=== PATIENT | female | born 1960 | race Caucasian/White ===

== ENCOUNTER 2020-07-08 16:39 | Emergency (ER) | payer SELFPAY ==
[2020-07-08] MEDS ORDERED: Sodium Chloride 0.9% 10 ML Syringe FLUSH PRN (17:38)
--- NOTE | 2020-07-08 18:13 | EDM.PDOC ---
ED HPI GENERAL MEDICAL PROBLEM - General Chief Complaint: Abdominal Pain Stated Complaint: ABD PAIN Time Seen by Provider: 07/08/20 18:00 Source of Information: Reports: Patient History Limitations: Reports: No Limitations - History of Present Illness INITIAL COMMENTS - FREE TEXT/NARRATIVE: patient presented to the ER with a c/o RLQ pain, started earlier today around noon and has been getting worse since then. Associated with nausea and loss of appetite. Pain is 8 out of 10. Sharp and spasm in nature. Worse with movement and improves with rest. No changes in BMs. h/o C section in the past. no PMH, not on any meds. 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 Genitourinary History: Reports: Other (See Below) Other Genitourinary History: kidney inection 5 years ago 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: Musculoskeletal History: Reports: Arthritis - Past Surgical History GI Surgical History: Reports: Cholecystectomy Social & Family History - Family History Family Medical History: Unobtainable - Tobacco Use Tobacco Use Status *Q: Former Tobacco User Used Tobacco, but Quit: Yes Month/Year Tobacco Last Used: 2000 Second Hand Smoke Exposure: No - Caffeine Use Caffeine Use: Reports: Coffee - Recreational Drug Use Recreational Drug Use: No ED ROS GENERAL - Review of Systems Review Of Systems: See Below Constitutional: Reports: No Symptoms HEENT: Reports: No Symptoms Respiratory: Reports: No Symptoms Cardiovascular: Reports: No Symptoms GI/Abdominal: Reports: Abdominal Pain Musculoskeletal: Reports: No Symptoms Skin: Reports: No Symptoms Neurological: Reports: No Symptoms ED EXAM, GI/ABD - Physical Exam Exam: See Below Exam Limited By: No Limitations General Appearance: Alert, Mild Distress Head: Atraumatic Respiratory/Chest: No Respiratory Distress, Lungs Clear Cardiovascular: Normal Peripheral Pulses, Regular Rate, Rhythm GI/Abdominal Exam: Distended, Rebound, Tender (RLQ) Extremities: Normal Inspection Neurological: Alert, Oriented, No Motor/Sensory Deficits Psychiatric: Normal Affect Course - Vital Signs Last Recorded V/S: Last Vital Signs Temp 36.1 C 07/08/20 18:03 Pulse 107 H 07/08/20 19:10 Resp 16 07/08/20 18:50 BP 149/78 H 07/08/20 19:10 Pulse Ox 96 07/08/20 18:50 - Orders/Labs/Meds Orders: Active Orders 24 hr Category Date Time Status Abdomen Pelvis w Cont [CT] Stat Exams 07/08/20 18:19 Taken Ciprofloxacin [Ciprofloxacin HCl] Med 07/08/20 19:13 Once 500 mg PO ONETIME ONE Iopamidol [Isovue-300 (61%)] Med 07/08/20 18:45 Active 100 ml IV . DIRECTED Sodium Chloride 0.9% [Normal Saline] 1,000 ml Med 07/08/20 18:15 Active IV ASDIRECTED Sodium Chloride 0.9% [Saline Flush] Med 07/08/20 17:38 Active 10 ml FLUSH ASDIRECTED PRN Tamsulosin [Flomax] Med 07/08/20 19:14 Once 0.4 mg PO ONETIME ONE Saline Lock Insert [OM.PC] Routine Oth 07/08/20 17:38 Ordered Medication Orders Ciprofloxacin (Ciprofloxacin Hcl) 500 mg PO ONETIME ONE Stop: 07/08/20 19:14 Sodium Chloride (Normal Saline) 1,000 mls @ 333 mls/hr IV ASDIRECTED [facility] Last Admin: 07/08/20 18:17 Dose: 333 mls/hr Documented by: ELBA Iopamidol (Isovue-300 (61%)) 100 ml IV . DIRECTED [facility] Last Admin: 07/08/20 18:37 Dose: 100 ml Documented by: JUVENTINO Sodium Chloride (Saline Flush) 10 ml FLUSH ASDIRECTED PRN PRN Reason: Keep Vein Open Labs: Laboratory Tests 07/08/20 07/08/20 07/08/20 Range/Units 17:30 17:56 17:56 WBC 7.5 (4.0-11.0) K/uL RBC 5.06 (3.80-5.80) M/uL Hgb 14.6 (11.5-16.5) g/dL Hct 43.8 (37.0-47.0) % MCV 87 (76-96) fL MCH 28.9 (27.0-32.0) pg MCHC 33.3 (31.0-35.0) g/dL RDW 13.9 (11.0-16.0) % Plt Count 148 L (150-500) K/uL MPV 8.7 (6.0-10.0) fL Neut % (Auto) 89.9 H (45.0-70.0) % Lymph % (Auto) 8.9 L (20.0-40.0) % [place] % (Auto) 0.4 L (3.0-10.0) % Eos % (Auto) 0.5 L (1.0-5.0) % Baso % (Auto) 0.3 (0.0-0.5) % Neut # (Auto) 6.73 (2.00-7.50) K/uL Lymph # (Auto) 0.67 L (1.50-4.00) K/uL [place] # (Auto) 0.03 L (0.20-0.80) K/uL Eos # (Auto) 0.04 (0.04-0.40) K/uL Baso # (Auto) 0.02 (0.02-0.10) K/uL Sodium 143 (136-145) mmol/L Potassium 3.8 (3.5-5.1) mmol/L Chloride 105 (98-107) mmol/L Carbon Dioxide 26.7 (21.0-32.0) mmol/L Anion Gap 15.1 H (5.0-15.0) mmol/L BUN 23 (8-26) mg/dL Creatinine 1.02 (0.55-1.02) mg/dL Est Cr Clr Drug Dosing 58.46 mL/min Estimated GFR (MDRD) 56 L (>60) MLS/MIN BUN/Creatinine Ratio 22.5 (6-25) Glucose 94 (74-100) mg/dL Calcium 8.7 (8.5-10.1) mg/dL Total Bilirubin 0.3 (0.0-1.0) mg/dL AST 20 (15-37) U/L ALT 31 (12-78) U/L Alkaline Phosphatase 93 (46-116) U/L Total Protein 7.8 (6.4-8.2) g/dL Albumin 4.1 (3.4-5.0) g/dL Globulin 3.7 (2.2-4.2) g/dL Albumin/Globulin Ratio 1.1 (0.8-2.0) Lipase 51 L (73-393) U/L Urine Color [place] Urine Appearance Slightly cloudy (CLEAR) Urine Protein Unable to report (NEGATIVE) mg/dL Urine Glucose (UA) Unable to report (NEGATIVE) mg/dL Urine Ketones Unable to report (NEGATIVE) mg/dL Urine Occult Blood Unable to report (NEGATIVE) Urine Nitrite Unable to report (NEGATIVE) Urine Bilirubin Unable to report (NEGATIVE) Urine Urobilinogen Unable to report (0.2-1.0) E.U./dL Ur Leukocyte Esterase Unable to report (NEGATIVE) Urine RBC 20-30 H /HPF Urine WBC 10-20 H /HPF Urine WBC Clumps Few /HPF Ur Squamous Epith Cells Few /HPF Urine Bacteria Many H /HPF Meds: Medications Generic Name Dose Route Start Last Admin Trade Name Freq PRN Reason Stop Dose Admin Ciprofloxacin 500 mg 07/08/20 19:13 Ciprofloxacin Hcl PO 07/08/20 19:14 ONETIME ONE Sodium Chloride 1,000 mls @ 333 mls/hr 07/08/20 18:15 07/08/20 18:17 Normal Saline IV 333 mls/hr ASDIRECTED KIRAN Administration Iopamidol 100 ml 07/08/20 18:45 07/08/20 18:37 Isovue-300 (61%) IV 100 ml . DIRECTED KIRAN Administration Sodium Chloride 10 ml 07/08/20 17:38 Saline Flush FLUSH ASDIRECTED PRN Keep Vein Open Discontinued Medications Generic Name Dose Route Start Last Admin Trade Name Freq PRN Reason Stop Dose Admin Ketorolac Tromethamine 15 mg 07/08/20 18:57 07/08/20 19:02 Toradol IVPUSH 07/08/20 18:58 15 mg ONETIME ONE Administration Morphine Sulfate 4 mg 07/08/20 18:14 07/08/20 18:24 Morphine IVPUSH 07/08/20 18:15 4 mg ONETIME ONE Administration Ondansetron HCl 4 mg 07/08/20 18:14 07/08/20 18:21 Zofran IVPUSH 07/08/20 18:15 4 mg ONETIME ONE Administration Sodium Chloride 50 ml 07/08/20 18:33 07/08/20 18:37 Normal Saline FLUSH 07/08/20 18:34 50 ml ONETIME ONE Administration - Re-Assessments/Exams Free Text/Narrative Re-Assessment/Exam: IV line was started. pain was controlled with IV morphine and Toradol. pain down to 1. Nausea was controlled with IV zofran. labs were ordered - showed now leukocytosis, but ++ RBC/WBC in urine. due to the location of the pain - CT abd/pelv was done to rule out a possible acute appy. this was negative for inflammatory changes of the appendix, but showed right distal ureteric stone 2-3mm with mild/mod uretero/hydronephrosis. Patient reports feeling much better Departure - Departure Time of Disposition: 19:18 Disposition: Home, Self-Care 01 Condition: Good Clinical Impression: Ureteric stone UTI (urinary tract infection) Qualifiers: Urinary tract infection type: urethritis Qualified Code(s): N34.2 - Other urethritis - Discharge Information *PRESCRIPTION DRUG MONITORING PROGRAM REVIEWED*: Not Applicable *COPY OF PRESCRIPTION DRUG MONITORING REPORT IN PATIENT SUSHMA: Not Applicable Forms: ED Department Discharge, ED Return to Work/School Form Sepsis Event Note (ED) - Evaluation Sepsis Screening Result: No Definite Risk - Focused Exam Vital Signs: Vital Signs Temp Pulse Resp BP Pulse Ox 07/08/20 19:10 107 H 149/78 H 07/08/20 18:52 155/61 H 07/08/20 18:50 109 H 16 143/63 H 96 07/08/20 18:03 36.1 C 18 148/62 H 96 07/08/20 17:13 37.1 C 90 16 178/76 H 98 - Problem List & Annotations (1) UTI (urinary tract infection) SNOMED Code(s): 77960130 Code(s): N39.0 - URINARY TRACT INFECTION, SITE NOT SPECIFIED Status: Acute Priority: Medium Current Visit: Yes Qualifiers: Urinary tract infection type: urethritis Qualified Code(s): N34.2 - Other urethritis (2) Ureteric stone SNOMED Code(s): 85855534 Code(s): N20.1 - CALCULUS OF URETER Status: Acute Priority: Medium Current Visit: Yes - Problem List Review Problem List Initiated/Reviewed/Updated: Yes - My Orders Last 24 Hours: My Active Orders 07/08/20 17:38 Sodium Chloride 0.9% [Saline Flush] 10 ml FLUSH ASDIRECTED PRN Saline Lock Insert [OM.PC] Routine 07/08/20 18:15 Sodium Chloride 0.9% [Normal Saline] 1,000 ml IV ASDIRECTED 07/08/20 18:19 Abdomen Pelvis w Cont [CT] Stat 07/08/20 18:45 Iopamidol [Isovue-300 (61%)] 100 ml IV . DIRECTED 07/08/20 19:13 Ciprofloxacin [Ciprofloxacin HCl] 500 mg PO ONETIME ONE 07/08/20 19:14 Tamsulosin [Flomax] 0.4 mg PO ONETIME ONE - Assessment/Plan Last 24 Hours: My Active Orders 07/08/20 17:38 Sodium Chloride 0.9% [Saline Flush] 10 ml FLUSH ASDIRECTED PRN Saline Lock Insert [OM.PC] Routine 07/08/20 18:15 Sodium Chloride 0.9% [Normal Saline] 1,000 ml IV ASDIRECTED 07/08/20 18:19 Abdomen Pelvis w Cont [CT] Stat 07/08/20 18:45 Iopamidol [Isovue-300 (61%)] 100 ml IV . DIRECTED 07/08/20 19:13 Ciprofloxacin [Ciprofloxacin HCl] 500 mg PO ONETIME ONE 07/08/20 19:14 Tamsulosin [Flomax] 0.4 mg PO ONETIME ONE Plan: - start taking antibiotics as prescribed for 3 days - increase fluids intake - take pain medications as needed - follow up with the PCP in 1-2 weeks - return to the ER if symptoms got worse or any concerns
[2020-07-08] MEDS ORDERED: Ondansetron 4 MG/2 ML SDV IVPUSH ONE (18:14)
[2020-07-08] MEDS ORDERED: Morphine 4 MG/ML VIAL IVPUSH ONE (18:14)
[2020-07-08] MEDS ORDERED: Sodium Chloride 0.9% 1,000 ML IV SCH (18:15)
[2020-07-08] MEDS ORDERED: Sodium Chloride 0.9% 50 ML SDV FLUSH ONE (18:33)
[2020-07-08] MEDS ORDERED: Iopamidol 612 MG/ML 100 ML Bottle IV SCH (18:45)
[2020-07-08] MEDS ORDERED: Ketorolac 60 MG/2 ML SDV IVPUSH ONE (18:57)
[2020-07-08] MEDS ORDERED: Ciprofloxacin 500 MG Tab PO ONE (19:13)
[2020-07-08] MEDS ORDERED: Tamsulosin 0.4 MG Cap.ER PO ONE (19:14)
--- NOTE | 2020-07-09 08:25 | CT ---
DATE OF SERVICE: 07/08/20 CLINICAL DATA: RLQ pain ENHANCED ABDOMEN AND PELVIC CT: Multislice acquisition through the abdomen and pelvis with IV, but without oral contrast was performed. No priors. There are atelectatic changes in the dependent portion of both lower lungs and in both lung bases. The liver is normal size with homogeneous attenuation. No focal hepatic lesions. The patient is status post cholecystectomy. No biliary duct dilatation. The spleen appears normal. The pancreas appears normal. The right and left adrenals appear normal. The right and left kidneys enhance symmetrically. There is a 3 mm distal ureteral calculus on the right located at the ureterovesical junction. There is hydronephrosis and hydroureter proximal to it consistent with obstruction. No hydronephrosis or hydroureter on the left. The bladder is partially fluid-filled. It appears normal. No evidence of appendicitis. There is a moderate amount of stool noted within the ascending and transverse colon. There is diverticulosis of the sigmoid colon. No evidence of diverticulitis. No free air. No free fluid. No dilated loops of bowel. No adenopathy. No aortic aneurysm or dissection. There is a small fat-containing umbilical hernia. IMPRESSION: 1. A 3 mm distal ureteral calculus on right at ureterovesical junction with obstruction. 2. Other findings as discussed above. [id number] [facility]
== END 2020-07-08 19:49 | disposition home or self-care (01) ==
LOC: LB.ED 16:39
DX: N13.2 Hydronephrosis with renal and ureteral calculous obstruction (principal); N34.2 Other urethritis; Z87.891 Personal history of nicotine dependence
CPT/HCPCS: 36415; 74177; 80053; 81001; 83690; 85025; 96374; 96375; 99284; 99284-25; A9270-GY; J1885; J2270; J2405; J7030; Q9967